=== PATIENT | male | born 1970 | race Caucasian/White ===

== ENCOUNTER → 2023-05-09 | Outpatient (CLI) | payer OTHER ==
[~2023-05-09] VITALS: Ht 175.3 cm; Wt 79.8 kg
[2023-05-09] MEDS: albuterol 2.5 MG/3 ML nebule NEB PRN (10:33)
[2023-05-09 10:35] VITALS: PULSE 60; RESP 15; O2SAT 98
== END | disposition home or self-care (01) ==
LOC: RT 10:05
PROVIDERS: ATTEND Chiropractor
DX: J45.909 Unspecified asthma, uncomplicated (principal)
CPT/HCPCS: 94060; 94760